=== PATIENT | female | born 1975 | race Caucasian/White ===

== ENCOUNTER 2016-03-05 18:17 | Emergency (ER) | payer MEDICAID ==
[2016-03-05] MEDS ORDERED: ONDANSETRON 4 MG VIAL ONE (18:56)
[2016-03-05] MEDS ORDERED: ASPIRIN 81 MG CHEW TAB ONE (18:56)
[2016-03-05] MEDS ORDERED: LORAZEPAM 2 MG/ML VIAL ONE (18:57)
[2016-03-05] MEDS ORDERED: ALU/MAG/SIM 30 ML UDC ONE (20:54)
[2016-03-05] MEDS ORDERED: LIDOCAINE 2% VISC 15 ML UDC ONE (20:54)
== END 2016-03-05 22:08 | disposition home or self-care (01) ==
LOC: ER 18:17
DX: R07.9 Chest pain, unspecified (principal); Z79.899 Other long term (current) drug therapy; Z91.040 Latex allergy status; F32.9 Major depressive disorder, single episode, unspecified; F41.1 Generalized anxiety disorder; Z85.3 Personal history of malignant neoplasm of breast; Z85.43 Personal history of malignant neoplasm of ovary
CPT/HCPCS: 36415; 71010; 80053; 82550; 83735; 84484; 85025; 85610; 85730; 93005; 96374; 96375